=== PATIENT | female | born 1965 | race Caucasian/White ===

== ENCOUNTER → 2016-06-20 | Day surgery (SDC) | payer MEDICARE, OTHER ==
[~2016-06-20] VITALS: Ht 121.9 cm; Wt 87.5 kg
[~2016-06-20] MED LIST: ABILIFY10 MG PO; ALDACTONE50 MG PO; BUSPAR 5MG TABLE5 MG PO; CLARITIN 10MG T10 MG PO; ECOTRIN81 MG PO; FERROUS SULFAT325 M2 PO; FLONASE 0.05% N16 GM; ISORDIL TAB 3030 MG PO; KEPPRA250 MG PO; LIPITOR TAB 2020 MG PO; NEURONTIN 300300 MG PO; OXYCONTIN10 MG PO; PLAVIX 75 MG TA75 MG PO; PROTONIX40 MG PO; RANEXA500 MG PO; REQUIP0.25 MG PO; ROXICODONE5 MG PO; SINGULAIR10 MG PO; SYNTHROID50 MCG PO; TOPROL XL25 MG PO; TOUJEO PO; VASOTEC2.5 MG PO; WELLBUTRIN XL150 M1 PO
[2016-06-20 09:47] LABS: HEMOGLOBIN 11.5 gm/dl (12.3-15.3); RED BLOOD COUNT 3.73 M/UL (4.00-5.10); WHITE BLOOD COUNT 8.3 K/UL (4.5-11.0)
== END | disposition home or self-care (01) ==
LOC: OR 08:56
PROVIDERS: Orthopaedic Surgery
PROC: 0MQ70ZZ Repair Right Hand Bursa and Ligament, Open Approach (ICD-10-PCS; 2016-06-20)
PROC: 0LS30ZZ Reposition Right Upper Arm Tendon, Open Approach (ICD-10-PCS; 2016-06-20)
PROC: 0RHJ04Z Insertion of Internal Fixation Device into Right Shoulder Joint, Open Approach (ICD-10-PCS; 2016-06-20)
PROC: 0RG Upper Joints, Fusion (ICD-10-PCS; 2016-06-20)
PROC: 0RGW04Z Fusion of Right Finger Phalangeal Joint with Internal Fixation Device, Open Approach (ICD-10-PCS; principal; 2016-06-20 11:05)
DX: M20.031 Swan-neck deformity of right finger(s) (principal); M06.9 Rheumatoid arthritis, unspecified; M86.9 Osteomyelitis, unspecified; E78.5 Hyperlipidemia, unspecified; I11.9 Hypertensive heart disease without heart failure; J44.9 Chronic obstructive pulmonary disease, unspecified; E11.9 Type 2 diabetes mellitus without complications; I25.10 Atherosclerotic heart disease of native coronary artery without angina pectoris; E07.9 Disorder of thyroid, unspecified; G47.00 Insomnia, unspecified; Z86.2 Personal history of diseases of the blood and blood-forming organs and certain disorders involving the immune mechanism; Z87.19 Personal history of other diseases of the digestive system; Z86.73 Personal history of transient ischemic attack (TIA), and cerebral infarction without residual deficits; Z86.69 Personal history of other diseases of the nervous system and sense organs; Z90.49 Acquired absence of other specified parts of digestive tract; Z89.512 Acquired absence of left leg below knee; Z89.511 Acquired absence of right leg below knee; Z79.82 Long term (current) use of aspirin; Z79.891 Long term (current) use of opiate analgesic; Z79.899 Other long term (current) drug therapy; Z88.2 Allergy status to sulfonamides; Z88.5 Allergy status to narcotic agent; Z88.8 Allergy status to other drugs, medicaments and biological substances
CPT/HCPCS: 36415; 73140; 76000; 80048; 81001; 82962; 85025; 87070; 93005; C1713; J1815; J2250; J3010; J3370; J7030; J7050; J7120